=== PATIENT | male | born 1940 | race Caucasian/White ===

== ENCOUNTER 2016-04-20 03:49 | Inpatient (IN) | payer MEDICAID ==
[2016-04-20] VITALS (17 sets, daily range): BP systolic 97–138; BP diastolic 53–86; Ht 162.6 cm; Wt 72.0 kg
[~2016-04-20] VITALS: Ht 162.6 cm; Wt 72.0 kg
[~2016-04-20 03:49] MED LIST: CARDURA8 MG PO; COUMADIN6 MG PO; GLUCOPHAGE1000 MG PO; LANOXIN125 MCG PO; PROSCAR5 MG PO; SALINE NASAL SP45 ML NS; THEREMS-M1 TAB PO
[2016-04-20 04:07] LABS: BASOPHILS 0.5 % (0.0-2.0); EOSINOPHILS 0.9 % (0-7); HEMATOCRIT 27.9 % (42.0-54.0); HEMOGLOBIN 9.2 g/dL (13.5-17.5); IMMATURE GRANULOCYTES 0.4 % (0-5); MCH 30.5 pg (26.0-34.0); MCV 92.4 fL (80.0-100.0); MEAN PLATELET VOLUME 9.8 fL (7.4-10.4); NEUTROPHILS 75.2 % (40-80); PLATELET COUNT 156 10x3/uL (130-400); RBC 3.02 10x6/uL (4.20-6.10); RDW 13.7 % (11.5-14.5); WBC 9.6 10x3/uL (4.8-10.8)
[2016-04-20 04:11] LABS: APTT 37.5 SECONDS (22.8-39.4); INR 2.75 (0.85-1.17); PROTIME 29.3 SECONDS (11.6-15.0)
[2016-04-20 04:19] LABS: ALBUMIN 2.6 g/dL (3.4-5.0); ALKALINE PHOSPHATASE 93 U/L (46-116); ALT (SGPT) 25 U/L (10-68); BILIRUBIN - TOTAL 0.48 mg/dL (0.2-1.3); CALC OSMOLALITY 298 mosm/kg (275-300); CALCIUM 8.8 mg/dL (8.5-10.1); CARBON DIOXIDE 27.9 mmol/L (21.0-32.0); CHLORIDE - SERUM 107 mmol/L (98-107); GLUCOSE 134 mg/dL (74-106); POTASSIUM - SERUM 4.1 mmol/L (3.5-5.1); PROTEIN - SERUM 5.5 g/dL (6.4-8.2); SODIUM 141 mmol/L (136-145); UREA NITROGEN 56 mg/dL (7-18); eGFR NON AFRICAN AMERICAN 78 mL/min (90-120)
[2016-04-20 04:37] LABS: THYROID STIMULATING HORMONE 1.35 uIU/mL (0.36-3.74); TROPONIN-I 0.053 ng/mL (0.000-0.060)
--- NOTE | 2016-04-20 07:20 | NUR ---
pt recieved. hr 81 bp 103/67 o2 via ra o2 sat 97% rr 18 non labored. repositioned up in bed for comfort. denies needs. will continue to monitor.
[2016-04-20 08:08] LABS: APPEARANCE CLEAR (CLEAR); COLOR YELLOW (YELLOW); GLUCOSE NEGATIVE (NEGATIVE); LEUKOCYTE ESTERASE NEGATIVE (NEGATIVE); NITRITE NEGATIVE (NEGATIVE); PROTEIN NEGATIVE (NEGATIVE); UROBILINOGEN NORMAL (NORMAL)
[2016-04-20 08:09] LABS: BILIRUBIN NEGATIVE (NEGATIVE); KETONE SMALL mg/dL (NEGATIVE)
--- NOTE | 2016-04-20 09:03 | NUR ---
FFP STARTED ORDERED. DR LIZARRAGA HERE. NGT IRRIGATED FOR PATIENCY, NGT TO LWS. SM AMT DARK RETURN. NO BRIGHT RED BLEEDING.
--- NOTE | 2016-04-20 09:44 | NUR ---
UNKNOWN AMT FFP SPILLED IN PT'S BED. INFORMED LAB. 1ST UNIT FFP BEGAN AGAIN.
[2016-04-20 10:25] LABS: BASOPHILS 0.3 % (0.0-2.0); EOSINOPHILS 0.8 % (0-7); HEMATOCRIT 32.1 % (42.0-54.0); HEMOGLOBIN 10.9 g/dL (13.5-17.5); IMMATURE GRANULOCYTES 0.3 % (0-5); LYMPHOCYTES 28.1 % (15-50); MCH 30.4 pg (26.0-34.0); MCV 89.4 fL (80.0-100.0); MEAN PLATELET VOLUME 10.3 fL (7.4-10.4); MONOCYTES 5.6 % (2-11); NEUTROPHILS 64.9 % (40-80); PLATELET COUNT 145 10x3/uL (130-400); RBC 3.59 10x6/uL (4.20-6.10); RDW 14.7 % (11.5-14.5); WBC 9.6 10x3/uL (4.8-10.8)
[2016-04-20 10:33] LABS: INR 2.41 (0.85-1.17); PROTIME 26.4 SECONDS (11.6-15.0)
[2016-04-20 10:45] LABS: MAGNESIUM - SERUM 1.6 mg/dL (1.8-2.4); PHOSPHOROUS 2.8 mg/dL (2.5-4.9)
[2016-04-20 10:46] LABS: DIGOXIN 0.01 ng/mL (0.90-2.00)
--- NOTE | 2016-04-20 11:13 | NUR ---
2ND UNIT FFP BEGAN. VSS, AFEBRILE.
--- NOTE | 2016-04-20 11:28 | NUR ---
Is the patient Alert and Oriented? Yes 0 * Facility Name [facility] 0 * Additional services required to return to the preadmission environment? No 0 * Can the patient safely return to the preadmission environment? Yes 0 * Has this patient been hospitalized within the prior 30 days at any hospital? No 0 Grand Total: 0 PATIENT IS AN INMATE AT THE [facility] IN [place], [place]. HE WILL BE RETURNING THERE AT DISCHARGE. CM TO FOLLOW.
--- NOTE | 2016-04-20 12:22 | NUR ---
NGT IRRIGATED WITH 500CC COLD TAP WATER, CLEAR RETURN. DCD NGT AND STARTED CL ORDERED.
[2016-04-20 16:05] LABS: HEMATOCRIT 30.8 % (42.0-54.0); HEMOGLOBIN 10.2 g/dL (13.5-17.5)
--- NOTE | 2016-04-20 19:40 | NUR ---
REPORT RECIEVED. ASSESSMENT COMPLETE PER FLOW SHEET. DENIES NEEDS OR PAIN AT THIS TIME. VSS WILL CONTINUE TO MONITOR.
--- NOTE | 2016-04-20 22:11 | NUR ---
PT RESTING COMFORTABLY NO NEW CHANGES. VSS. WILL CONTINUE TO MONITOR.
--- NOTE | 2016-04-20 23:24 | NUR ---
REASSESSMENT COMPLETE PER FLOW SHEET. NO NEW CHANGES AT THIS TIME. PT SLEEPING COMFORTABLY DENIES PAIN OR NEEDS WILL CONTINUE TO MONITOR.
[2016-04-21] VITALS (23 sets, daily range): BP systolic 94–136; BP diastolic 54–84
--- NOTE | 2016-04-21 03:24 | NUR ---
REASSESSMENT COMPLETE PER FLOW SHEET. NO NEW CHANGES. VSS WILL CONTINUE TO MONTIOR.
[2016-04-21 06:00] LABS: BASOPHILS 0.9 % (0.0-2.0); EOSINOPHILS 3.6 % (0-7); HEMATOCRIT 29.2 % (42.0-54.0); HEMOGLOBIN 9.6 g/dL (13.5-17.5); IMMATURE GRANULOCYTES 0.4 % (0-5); LYMPHOCYTES 30.3 % (15-50); MCH 29.7 pg (26.0-34.0); MCHC 32.9 g/dL (31.0-37.0); MCV 90.4 fL (80.0-100.0); MEAN PLATELET VOLUME 10.1 fL (7.4-10.4); MONOCYTES 8.2 % (2-11); NEUTROPHILS 56.6 % (40-80); PLATELET COUNT 131 10x3/uL (130-400); RBC 3.23 10x6/uL (4.20-6.10); RDW 15.2 % (11.5-14.5); WBC 8.1 10x3/uL (4.8-10.8)
[2016-04-21 06:23] LABS: ALBUMIN 2.6 g/dL (3.4-5.0); ALKALINE PHOSPHATASE 83 U/L (46-116); ALT (SGPT) 21 U/L (10-68); CALC OSMOLALITY 289 mosm/kg (275-300); CALCIUM 8.9 mg/dL (8.5-10.1); CARBON DIOXIDE 23.1 mmol/L (21.0-32.0); CHLORIDE - SERUM 110 mmol/L (98-107); GLUCOSE 105 mg/dL (74-106); MAGNESIUM - SERUM 1.7 mg/dL (1.8-2.4); PROTEIN - SERUM 5.5 g/dL (6.4-8.2); SODIUM 142 mmol/L (136-145); eGFR NON AFRICAN AMERICAN 78 mL/min (90-120)
[2016-04-21 06:25] LABS: PROTIME 21.8 SECONDS (11.6-15.0)
[2016-04-21 06:27] LABS: INR 1.91 (0.85-1.17)
[2016-04-21 06:30] LABS: UREA NITROGEN 32 mg/dL (7-18)
--- NOTE | 2016-04-21 07:00 | NUR ---
PATIENT IN SEMI FOWLERS POSITION WATCHING TV. IMCU NURSE AT BEDSIDE. ASSESSMENT COMPLETED AT THIS TIME. DENIES NEEDS.
--- NOTE | 2016-04-21 12:11 | NUR ---
PATIENT PREOPED FOR BEDSIDE EGD
[2016-04-21 12:20] LABS: HEMATOCRIT 30.2 % (42.0-54.0); HEMOGLOBIN 9.9 g/dL (13.5-17.5)
--- NOTE | 2016-04-21 12:36 | NUR ---
PER DR LIZARRAGA, OK FOR PATIENT TO GO TO THE FLOOR.
--- NOTE | 2016-04-21 13:36 | NUR ---
HAVE SPOKEN WITH DR GORDON (ON FOR DR TAPIA), ORDERS RECEIVED TO TRANSFER TO THE FLOOR.
--- NOTE | 2016-04-21 17:21 | NUR ---
REPORT CALLED TO ROXY MONZON. PATIENT WILL TRANSFER TO ROOM 2511
--- NOTE | 2016-04-21 18:03 | NUR ---
RECD TO ROOM 224 VIA W/C AGUSTIN CATH IN PLACE AND DRAINING YELLOE URINE AT PRESENT.GUARD AT BEDSIDE.
[2016-04-21 20:03] LABS: HEMATOCRIT 29.9 % (42.0-54.0); HEMOGLOBIN 9.7 g/dL (13.5-17.5)
--- NOTE | 2016-04-21 20:31 | NUR ---
PT RESTING IN BED, GUARD AT BEDSIDE. PT IS A&OX4. PT AGUSTIN INTACT DRAINING YELLOW URINE. PT HAS AN IV IN RT AC AND LT FOREARM BOTH SLOCK'D. PT DENIES NEEDS AT THIS TIME. BED LOW. CL IN REACH.
[2016-04-22 00:36] VITALS: BP 127/62
[2016-04-22 02:50] LABS: BASOPHILS 0.5 % (0.0-2.0); EOSINOPHILS 3.2 % (0-7); HEMATOCRIT 28.5 % (42.0-54.0); HEMOGLOBIN 9.4 g/dL (13.5-17.5); IMMATURE GRANULOCYTES 0.2 % (0-5); LYMPHOCYTES 25.4 % (15-50); MCH 30.2 pg (26.0-34.0); MCV 91.6 fL (80.0-100.0); MEAN PLATELET VOLUME 9.7 fL (7.4-10.4); MONOCYTES 7.4 % (2-11); NEUTROPHILS 63.3 % (40-80); PLATELET COUNT 134 10x3/uL (130-400); RBC 3.11 10x6/uL (4.20-6.10); WBC 9.5 10x3/uL (4.8-10.8)
[2016-04-22 03:03] LABS: ALBUMIN 2.6 g/dL (3.4-5.0); ANION GAP 12.3 mmol/L (8-16); BILIRUBIN - TOTAL 0.92 mg/dL (0.2-1.3); CALCIUM 8.9 mg/dL (8.5-10.1); CARBON DIOXIDE 23.5 mmol/L (21.0-32.0); CREATININE - SERUM 1.1 mg/dL (0.6-1.3); POTASSIUM - SERUM 3.8 mmol/L (3.5-5.1); PROTEIN - SERUM 5.6 g/dL (6.4-8.2)
[2016-04-22 04:34] VITALS: BP 114/49
[2016-04-22 09:49] LABS: HEMATOCRIT 29.8 % (42.0-54.0); HEMOGLOBIN 9.7 g/dL (13.5-17.5)
[2016-04-22 10:06] VITALS: BP 120/61
--- NOTE | 2016-04-22 11:30 | NUR ---
AGUSTIN DCD ORDERED,350CC OF YELLOW URINE EMPTIED FROM BAG.URINAL TO PT.DENIES NEEDS
--- NOTE | 2016-04-22 11:45 | NUR ---
SCD'S OFF PER PT REQUEST.
[2016-04-22 13:01] VITALS: BP 111/64
--- NOTE | 2016-04-22 14:25 | NUR ---
GUARD REMAINS AT BEDSIDE.PT WITHOUT DISTRESS.CALL LIGHT IN REACH
--- NOTE | 2016-04-22 16:47 | NUR ---
PT HAS VOIDED 250CC OF CLEAR YELLOW URINE IN URINAL.FSBS PER MAR
[2016-04-22 17:52] LABS: HEMATOCRIT 28.5 % (42.0-54.0); HEMOGLOBIN 9.3 g/dL (13.5-17.5)
--- NOTE | 2016-04-22 18:22 | NUR ---
REMAINS WITHOUT NEEDS,WITHOUT CAHNGE.CONT PLAN OF CARE
[2016-04-22 18:48] VITALS: BP 111/57
[2016-04-22 20:00] VITALS: BP 127/64
[2016-04-23] VITALS: BP 138/72
--- NOTE | 2016-04-23 00:25 | NUR ---
RESTING WITH EYES CLOSED, RESP WITH EASE, NO DISTRESS NOTED, GUARD AT BEDSIDE, CL IN REACH
[2016-04-23 01:49] LABS: HEMATOCRIT 28.6 % (42.0-54.0); HEMOGLOBIN 9.5 g/dL (13.5-17.5)
[2016-04-23 04:00] VITALS: BP 119/58
[2016-04-23 05:40] LABS: BASOPHILS 0.8 % (0.0-2.0); EOSINOPHILS 4.6 % (0-7); HEMATOCRIT 28.8 % (42.0-54.0); HEMOGLOBIN 9.6 g/dL (13.5-17.5); IMMATURE GRANULOCYTES 0.6 % (0-5); LYMPHOCYTES 25.3 % (15-50); MCH 30.8 pg (26.0-34.0); MCHC 33.3 g/dL (31.0-37.0); MCV 92.3 fL (80.0-100.0); MEAN PLATELET VOLUME 9.8 fL (7.4-10.4); MONOCYTES 6.3 % (2-11); NEUTROPHILS 62.4 % (40-80); PLATELET COUNT 146 10x3/uL (130-400); RBC 3.12 10x6/uL (4.20-6.10); RDW 14.9 % (11.5-14.5); WBC 8.8 10x3/uL (4.8-10.8)
[2016-04-23 05:58] LABS: INR 1.53 (0.85-1.17); PROTIME 18.3 SECONDS (11.6-15.0)
[2016-04-23 06:07] LABS: ANION GAP 12.5 mmol/L (8-16); CALCIUM 8.7 mg/dL (8.5-10.1); CARBON DIOXIDE 23.1 mmol/L (21.0-32.0); CREATININE - SERUM 1.1 mg/dL (0.6-1.3); POTASSIUM - SERUM 3.6 mmol/L (3.5-5.1)
[2016-04-23 07:53] VITALS: BP 145/65
[2016-04-23 10:16] LABS: HEMATOCRIT 31.1 % (42.0-54.0)
[2016-04-23] MEDS ORDERED: PROTONIX40 MG PO (10:50)
[2016-04-23 11:34] VITALS: BP 155/65
--- NOTE | 2016-04-23 12:10 | NUR ---
REPORT TO [facility],SPOKE WITH JOAO VARGAS RN
--- NOTE | 2016-04-23 12:20 | NUR ---
SPOKE WITH SOPHIA IN ICU RE.. PT STATES HAD CLOTHES AND BAG WITH HIM WHEN HE CAME.NO PERSONAL BELONGINGS DOCUMENTED ON ADMISION TO HOSPITAL.PT CAME THROUGH ER TO ICU THEN TO MS UNIT.NO BELONGINGS IN ROOM OTHER THAN A BLACK WATCH.
--- NOTE | 2016-04-23 12:42 | NUR ---
SPOKE WITH CHERELLE IN ER,NO PERSONAL BELONGINGS ON ADMIT
--- NOTE | 2016-04-23 12:43 | NUR ---
SPOKE WITH GUARD AT BEDSIDE,HE STATES BELONGINGS WILL BE AT [facility].
--- NOTE | 2016-04-23 13:19 | NUR ---
IV DCD CATH INTACT.WAITING ON RIDE FROM [facility]. DISCHARGE INSTRUCTIONS ,STATES UNDERSTANDING.DISCHARGE PAPERS TO GUARD
--- NOTE | 2016-04-23 14:15 | NUR ---
LEFT UNIT WITH F STAFF FOR TRANSPORT BACK TO [facility]
--- NOTE | 2016-05-02 07:21 | DS ---
PATIENT:KRYSTIAN SARAH :42 MEDICAL RECORD: [id number] DISCHARGE SUMMARY ADMISSION DATE: 04/20/16 DISCHARGE DATE: 04/23/16 DATE OF ADMISSION: 04/20/2016 DATE OF DISCHARGE: 04/23/2016 CONDITION ON DISCHARGE: Improved. ADMITTING DIAGNOSES: Gastroesophageal bleed, history of chronic atrial fibrillation as well as diabetes mellitus. DISCHARGE DIAGNOSES: Upper gastrointestinal bleed secondary to gastric duodenal ulcer, diffuse erosive gastritis. HOSPITAL COURSE: The patient is a 75-year-old gentleman who was admitted through the Emergency Room to Dr. Stephenson's service on unassigned medicine complaining of bright red blood. The patient apparently is a local inmate. The patient had noticed his blood pressure had been low. PHYSICAL EXAMINATION: VITAL SIGNS: In the Emergency Room, he was afebrile. His heart rate was 102. His blood pressure 126/64. His O2 sat was 99%, and respirations 18. HEENT: Normal. NECK: Supple. There is no adenopathy. HEART: Had regular rhythm. No murmurs, gallops, or rubs. LUNGS: Clear. ABDOMEN: Soft, bowel sounds positive. LABORATORY DATA: The patient's white count was 9.6, hemoglobin 92, hematocrit 27.9 and platelets 156. His INR was 2.75. His BUN was 56 and creatinine was 1. The patient was admitted. GI consultation was obtained. The patient was typed and crossed given 2 units of packed red blood cells. He was seen in consultation by Dr. Art Brito. On the , the patient was taken to the endoscopy lab, where he underwent EGD where he was found to have nonbleeding ulcer in the fundus. A biopsy was taken. There was also diffuse erosive gastritis. The patient was started on Protonix. He was tolerating his diet well. On the , his hemoglobin was 10, hematocrit is 31.1. His PT was 18.3 and his INR was 1.53. His Coumadin had been held and restarted back on the . The patient was stable and was felt he could be discharged. DISCHARGE INSTRUCTIONS: Protonix 40 mg 1 p.o. b.i.d., warfarin 6 mg 1 p.o. daily, Lanoxin 0.125 p.o. daily, 1 multivitamin a day, Cardura 8 mg once a day, Proscar 5 mg once a day, metformin 1000 mg daily. ACTIVITIES: Ad laura. DIET: A 2200-calorie ADA diet. FOLLOWUP: He would follow up with his PCP within the next 3 days for PT/INR as well as CBC. Continue current medications. TRANSINT:[id number] Voice Confirmation ID: [id number] DOCUMENT ID: [id number] DISCHARGE SUMMARY REPORT [id number] KRYSTIAN SARAH JAMES MD at 0721 CC: [id number] DICTATION DATE: 04/23/16 1057 DEPUTY DIRECTOR OF NURSING: 04/23/16 2228 DIS IN 04/23/16 [id number] [place] [address]
--- NOTE | 2016-05-10 08:01 | HP ---
PATIENT: KRYSTIAN SARAH MEDICAL RECORD: [id number] ACCOUNT: [id number] LOCATION:[id number] : 42 ADMISSION DATE: 04/20/16 HISTORY AND PHYSICAL EXAMINATION HISTORY OF PRESENT ILLNESS: A 75-year-old male admitted through the Emergency Room with a complaint of bright red blood per rectum. Reports he had been having bleeding for the past 2 weeks at the senior care, was brought into the Emergency Room early this morning with a low blood pressure. ALLERGIES: No known drug allergies. MEDICATIONS: Coumadin 6 mg daily, digoxin 0.125 mg daily, Cardura 8 mg daily, saline nasal spray, metformin 1000 mg daily, multivitamin daily, and Proscar 5 mg daily. PAST MEDICAL HISTORY: Significant for coronary artery disease. He has a remote history of stent placement and also has a pacemaker. He has chronic atrial fibrillation. He is on Coumadin therapy. He is diabetic. He denies any history of tobacco. SOCIAL HISTORY: Presently incarcerated, brought in from the senior care. REVIEW OF SYSTEMS: GENERAL: No reported change in weight or appetite. HEENT: No cephalgia, visual changes, tinnitus, epistaxis or dysphagia. CARDIOVASCULAR: Chronic atrial fibrillation. No chest pain. PULMONARY: He denies hemoptysis. He does admit to cough. GASTROINTESTINAL: He denies nausea and vomiting. He does admit bright red blood per rectum and also melenic stools. GENITOURINARY: He denies dysuria. He denies change in frequency. MUSCULOSKELETAL: No acute changes. ENDOCRINE: He denies polyuria, polydipsia, or polyphagia. PHYSICAL EXAMINATION: VITAL SIGNS: Temperature 97.6, heart rate 102 irregular, irregular, respirations 18, blood pressure is 126/61 initially, reportedly dropped in the Emergency Room, O2 sats 99% on room air. HEENT: Head is normocephalic and atraumatic. Eyes: Pupils are equally round and reactive to light and accommodation. Extraocular muscles intact. Conjunctiva was not injected. Ears: Canals patent, TMs are intact. Nose: NG tube in place with coffee ground appearing emesis present. NECK: Supple. No lymphadenopathy and no JVD. HEART: Irregular, irregular, rate controlled. LUNGS: Scattered rhonchi, breathing is nonlabored. ABDOMEN: Soft and nontender. Bowel sounds all 4 quadrants. EXTREMITIES: Present times 4. No edema. NEUROLOGIC: No focal deficits, answers appropriately. LABORATORY DATA: Lactic acid 2.2. CBC: White count 9.6, hemoglobin 9.2, hematocrit 27.9, platelets 156. INR is 2.75. Chemistry shows sodium of 141, potassium 4.1, chloride 107, bicarbonate 27.9. BUN 56, creatinine 1.0. Glucose 134. AST is 29, ALT is 25. Ammonia levels 20. Troponin 0.053. Albumin 2.6. TSH is 1.35. HISTORY AND PHYSICAL [id number] KRYSTIAN SARAH ASSESSMENT AND PLAN: 1. Gastrointestinal bleed, likely unclear whether upper or lower, or combined. The patient is n.p.o. Dr. Gramajo consulted. Coumadin held. He was given vitamin K in the Emergency Room. Transfuse 2 units of O negative. Type and cross. We will transfuse 2 additional units after he is typed and crossed. 2. Diabetes mellitus. We will hold metformin, sliding scale insulin, low resistance. 3. Chronic atrial fibrillation, continue digoxin. 4. Cough. We will obtain chest x-ray, DuoNebs and supportive care. TRANSINT:[id number] Voice Confirmation ID: [id number] DOCUMENT ID: [id number] JC TAPIA DO at 0801 CC: [id number] DICTATION DATE: 04/20/16724 ENERGY ECONOMIST: 04/20/16826 DIS IN 04/23/16 [place] [id number] [place] [id number]
== END 2016-04-23 14:15 | disposition other institution (70) | DRG 378 ==
LOC: D.ER 03:49 → D.MS 04:54 → D.ICU 04:54 → D.MS 04-21 17:58
PROVIDERS: Family Medicine; Internal Medicine Gastroenterology; ADMIT Family Medicine
PROC: 0DB68ZX Excision of Stomach, Via Natural or Artificial Opening Endoscopic, Diagnostic (ICD-10-PCS; principal; 2016-04-21 13:00)
DX: K92.2 Gastrointestinal hemorrhage, unspecified (principal); D62 Acute posthemorrhagic anemia; K25.9 Gastric ulcer, unspecified as acute or chronic, without hemorrhage or perforation; K26.9 Duodenal ulcer, unspecified as acute or chronic, without hemorrhage or perforation; K29.60 Other gastritis without bleeding; I25.10 Atherosclerotic heart disease of native coronary artery without angina pectoris; I48.91 Unspecified atrial fibrillation; T45.515A Adverse effect of anticoagulants, initial encounter